=== PATIENT | female | born 1970 | race American Indian/Alaskan Native ===

== ENCOUNTER 2018-11-01 09:10 | Emergency (ER) | payer SELFPAY ==
--- NOTE | 2018-11-01 10:46 | Emergency Department Report ---
ED General Adult HPI - General Chief complaint: High BP Stated complaint: HBP,HEADACHE,FINGERS NUMB Time Seen by Provider: 11/01/18 10:16 Source: patient Mode of arrival: Ambulatory Limitations: No Limitations - History of Present Illness Initial comments: Lenin angulo female presents to ED with complaint of headache, requesting medication refill. Patient reports left-sided headache 2-3 days, denies dizziness, nausea, vomiting, chest pain. Patient reports tingling in bilateral hands. Patient states she has been off of her losartan and amlodipine for 7 months. -: month(s) (7) Location: head Severity scale (0 -10): 7 Quality: aching Consistency: intermittent Improves with: none Worsens with: none Associated Symptoms: headaches. denies: chest pain, fever/chills, nausea/vomiting, shortness of breath - Related Data Previous Rx's Medication Instructions Recorded Last Taken Type LORazepam [Ativan] 1 mg PO Q12HR PRN #60 tablet 05/28/16 Unknown Rx Losartan [Cozaar] 100 mg PO QDAY #30 tablet 11/01/18 Unknown Rx amLODIPine [Norvasc] 10 mg PO DAILY #30 tablet 11/01/18 Unknown Rx Allergies Allergy/AdvReac Type Severity Reaction Status Date / Time MALIK Inhibitors AdvReac Severe cough Verified 05/28/16 11:53 ED Review of Systems ROS: Stated complaint: HBP,HEADACHE,FINGERS NUMB Other details as noted in HPI Comment: All other systems reviewed and negative Constitutional: denies: chills, fever Respiratory: denies: shortness of breath Cardiovascular: denies: chest pain Gastrointestinal: denies: nausea, vomiting Neurological: headache, paresthesias. denies: weakness ED Past Medical Hx - Past Medical History Previous Medical History?: Yes Hx Hypertension: Yes Hx Congestive Heart Failure: No Hx Diabetes: No Hx Pulmonary Embolism: Yes (anxiety, depression) Hx Asthma: No Hx COPD: No - Surgical History Past Surgical History?: No - Social History Smoking Status: Never Smoker Substance Use Type: Marijuana - Medications Home Medications: Home Medications Medication Instructions Recorded Confirmed Last Taken Type LORazepam [Ativan] 1 mg PO Q12HR PRN #60 tablet 05/28/16 Unknown Rx Losartan [Cozaar] 100 mg PO QDAY #30 tablet 11/01/18 Unknown Rx amLODIPine [Norvasc] 10 mg PO DAILY #30 tablet 11/01/18 Unknown Rx ED Physical Exam - General Limitations: No Limitations General appearance: alert, in no apparent distress - Head Head exam: Present: atraumatic, normocephalic - Eye Eye exam: Present: normal appearance - ENT ENT exam: Present: mucous membranes moist - Neck Neck exam: Present: normal inspection. Absent: meningismus - Respiratory Respiratory exam: Present: normal lung sounds bilaterally. Absent: respiratory distress - Cardiovascular Cardiovascular Exam: Present: regular rate, normal rhythm - GI/Abdominal GI/Abdominal exam: Absent: distended - Extremities Exam Extremities exam: Present: normal inspection - Neurological Exam Neurological exam: Present: alert, oriented X3, CN II-XII intact. Absent: motor sensory deficit - Psychiatric Psychiatric exam: Present: normal affect, normal mood - Skin Skin exam: Present: warm, dry, intact, normal color ED Course Vital Signs 11/01/18 11/01/18 11/01/18 09:18 10:49 10:52 Temperature 97.6 F Pulse Rate 90 77 Respiratory 20 18 Rate Blood Pressure 197/125 Blood Pressure 226/115 [Left] O2 Sat by Pulse 100 100 100 Oximetry 11/01/18 11/01/18 11/01/18 11:00 11:15 11:30 Temperature Pulse Rate Respiratory Rate Blood Pressure 193/106 187/107 187/107 Blood Pressure [Left] O2 Sat by Pulse 100 100 100 Oximetry 11/01/18 11/01/18 11/01/18 12:30 12:45 13:00 Temperature Pulse Rate Respiratory Rate Blood Pressure 208/125 180/100 153/96 Blood Pressure [Left] O2 Sat by Pulse 99 99 100 Oximetry 11/01/18 13:15 Temperature Pulse Rate Respiratory Rate Blood Pressure 160/97 Blood Pressure [Left] O2 Sat by Pulse 98 Oximetry ED Medical Decision Making - EKG Data -: EKG Interpreted by Ct EKG shows normal: sinus rhythm, axis, intervals, QRS complexes, ST-T waves Rate: normal - EKG Data Interpretation: no acute changes - Medical Decision Making 48-year-old female with history of hypertension, noncompliant with BP meds in 7 months. BP initially 226/115. Patient reported headache and saline to bilateral hands. No neuro deficit on exam, cranial nerves intact, no weakness in extremities, sensation grossly intact. Patient given clonidine here in ED. BP improved. Patient given refill for losartan and amlodipine. Outpatient follow-up advised. Return precautions given. - Differential Diagnosis uncontrolled hypertension, medication noncompliance Critical care attestation.: If time is entered above; I have spent that time in minutes in the direct care of this critically ill patient, excluding procedure time. ED Disposition Clinical Impression: Uncontrolled hypertension Disposition: - TO HOME OR SELFCARE Is pt being admited?: No Condition: Stable Instructions: Hypertension (ED) Prescriptions: Losartan [Cozaar] 100 mg PO QDAY #30 tablet amLODIPine [Norvasc] 10 mg PO DAILY #30 tablet Referrals: PRIMARY CAREMD [Primary Care Provider] - 3-5 Days [facility] [Provider Group] - 3-5 Days [facility] [Outside] - 3-5 Days Forms: Work/School Release Form(ED) Time of Disposition: 12:21
[2018-11-01] MEDS ORDERED: CATAPRES PO ONE (10:56)
[2018-11-01 13:25] VITALS: BP 160/97
== END 2018-11-01 13:00 | disposition home or self-care (01) ==
LOC: ED 09:10
DX: I10 Essential (primary) hypertension (principal); F12.10 Cannabis abuse, uncomplicated; Z86.711 Personal history of pulmonary embolism; Z79.899 Other long term (current) drug therapy
CPT/HCPCS: 93005; 93010; 99282